=== PATIENT | male | born 1975 | race African-American/Black ===

== ENCOUNTER 2018-10-12 04:59 | Emergency (ER) | payer SELFPAY | END 2018-10-12 06:25 | disposition home or self-care (01) | LOC: ERS 04:59 | DX: B02.9 Zoster without complications (principal); I10 Essential (primary) hypertension; Z79.899 Other long term (current) drug therapy | CPT/HCPCS: 99282 ==

== ENCOUNTER 2019-04-15 19:59 | Observation (INO) | payer SELFPAY ==
[~2019-04-15 19:59] MED LIST: Iopamidol-370 76% 500 ML 1 ML ONE
[2019-04-15 20:23] LABS: #Lymphocytes 2.2 thou/uL (1.20-3.40); #Monocytes 0.8 thou/uL (0.11-0.59); #Neutrophils 13.3 thou/uL (1.40-6.50); %Basophils 0.2 % (0.0-1.0); %Eosinophils 0.1 % (0.0-10.0); %Lymphocytes 13.6 % (21.0-51.0); %Monocytes 5.1 % (0.0-10.0); %Neutrophils 81.1 % (42.0-75.0); Hemoglobin 15.5 g/dL (14.0-18.0); Mean Corpuscular HGB CONC 36.2 g/dL (32.0-36.0); Mean Corpuscular Volume 85.7 fL (78.0-98.0); Mean Platelet Volume 9.5 fL (7.4-10.4); Platelet Count 157 thou/uL (130-400); RBC Distribution Width 13.8 % (11.5-14.5); Red Blood Cell (RBC) Count 5.01 mill/uL (4.70-6.10); White Blood Cell (WBC) Count 16.4 thou/uL (4.8-10.8)
[2019-04-15 20:44] LABS: ALT (SGPT) 24 U/L (8-55); AST (SGOT) 20 U/L (5-34); Albumin 4.6 g/dL (3.5-5.0); Alkaline Phosphatase 59 U/L (40-110); Anion Gap 13 mmol/L (10-20); BUN (Urea Nitrogen) 16 mg/dL (8.9-20.6); Bilirubin, Total 1.4 mg/dL (0.2-1.2); Calc. Creatinine Clearance 0 mL/min (70-130); Carbon Dioxide 28 mmol/L (22-29); Chloride 101 mmol/L (98-107); Estimated GFR-MDRD 71; Globulin 3.5 g/dL (2.4-3.5); Glucose 91 mg/dL (70-105); Lipase 20 U/L (8-78); Potassium 3.8 mmol/L (3.5-5.1); Protein, Total 8.1 g/dL (6.0-8.3); Sodium 138 mmol/L (136-145)
--- NOTE | 2019-04-15 20:52 | RAD ---
PORTABLE CHEST: 04/15/19 HISTORY: Chest pain. Heart size appears slightly enlarged. Mediastinal structures appear unremarkable. The lungs are clear of infiltrates. There is no signs of failure. IMPRESSION: Some mild cardiomegaly. POS: [facility]
[2019-04-15 21:06] LABS: CKMB 2.1 ng/mL (0-6.6)
[2019-04-15] MEDS ORDERED: Aspirin Chewable 81 MG TAB ONE (21:18)
[2019-04-15] MEDS ORDERED: Acetaminophen 500 MG TAB ONE (21:18)
[2019-04-15] MEDS ORDERED: cefTRIAXone\\ROCEPHIN 1 GM VIAL ONE (22:18)
[2019-04-15] MEDS ORDERED: Nitroglycerin 2% Ointment 1 INCH/1 GM Packet ONE (22:18)
--- NOTE | 2019-04-15 22:39 | CT ---
CT Chest W Con HISTORY: Chest pain. COMPARISON: Chest x-ray done earlier today. FINDINGS: The lungs are clear of any infiltrative process. There is no significant mediastinal or hilar adenopathy. There is some residual thymic tissue present . The thoracic aorta is normal in caliber. There are fatty changes of the liver. Gallstones are noted. Suggestion of some possible esophageal wa ll thickening distally, this raises the possibility of reflux. IMPRESSION: 1. Mild fatty change of liver and gallstones. 2. Questionable slight wall thickening to the distal esophagus raising the possibility of reflux.
[2019-04-16] MEDS ORDERED: Ondansetron ODT 4 MG TAB SL PRN (00:31)
[2019-04-16] MEDS ORDERED: Ondansetron PF 4 MG/2 ML Vial IVP PRN (00:31)
[2019-04-16] MEDS ORDERED: Acetaminophen 325 MG TAB PO PRN (00:31)
[2019-04-16 00:47] VITALS: TEMP 98.4; BMI 36.3
[2019-04-16 00:54] LABS: Bacteria/HPF None Seen HPF (None Seen); Bilirubin Negative (Negative); Blood, Urine Negative (Negative); Clarity Clear (Clear); Glucose, Urine (Dipstick) Normal (Negative); Leukocyte Negative Leu/uL (Negative); Nitrite Negative (Negative); Protein, Urine (Dipstick) 10 mg/dL (Neg-Trace); RBC/HPF 0-3 HPF (0-3); Squamous Epithelial 0-3 HPF (0-3); Urobilinogen Normal mg/dL (Less than 2); WBC/HPF 0-3 HPF (0-3)
[2019-04-16 00:59] LABS: Urine Culture Reflex No No
[2019-04-16] MEDS ORDERED: HYDROcodone/Acetaminophen 5/325 mg Tablet PO PRN (01:16)
[2019-04-16] MEDS ORDERED: Bisacodyl 5 MG TAB PO PRN (01:16)
[2019-04-16] MEDS ORDERED: Nitroglycerin 0.4 MG TAB (25 Tab Bottle) PO PRN (01:16)
[2019-04-16] MEDS ORDERED: Morphine 2 MG/ML SYRINGE SLOW IVP PRN (01:29)
[2019-04-16] MEDS ORDERED: Lisinopril 20 MG TAB PO SCH ×2 (01:45→09:00)
[2019-04-16] MEDS ORDERED: Metoprolol Tartrate 25 MG TAB PO SCH ×2 (01:45→09:00)
[2019-04-16] MEDS ORDERED: Pantoprazole 40 MG VIAL IVP SCH ×2 (01:45→09:00)
[2019-04-16] MEDS: Sodium Chloride 0.9% 1,000 ML IV SCH ×2 (02:26→13:44)
[2019-04-16 02:45] LABS: Troponin I Less than 0.010 ng/mL (< 0.028)
--- NOTE | 2019-04-16 02:48 | HP ---
PRESENTING COMPLAINT: Chest pain. HISTORY OF PRESENT ILLNESS: Mr. Charan Maynard is a 43-year-old male with history of hypertension since the last three years, on lisinopril, but ran out of medications for the last 2 weeks, presented to the ED today because of 2-day history of substernal chest pain. Pain is more in the lower substernal area, no radiating, associated with more of a pressure-like. Patient denies any associated shortness of breath. He denies any headache or dizziness. He admits to nausea but no vomiting. He also admits to fever but no chills. On arrival in the ED, he was noted with a temperature of 101.9. Patient denies any sick contacts. He is accompanied by the mother history. There is no family history of coronary artery disease. Patient denies any regular tobacco use. He has not had his lipid panel checked in a while. He describes pain now still at 5/10. PAST MEDICAL HISTORY: Hypertension. HOME MEDICATION: Lisinopril, but currently out. SOCIAL HISTORY: Patient resides in the community with mom. No history of tobacco, alcohol, or illicit drug use. ALLERGIES: NO KNOWN DRUG ALLERGIES. FAMILY HISTORY: Significant for father with diabetes. Mom is young and healthy. REVIEW OF SYSTEMS: All systems reviewed times 10, negative, except as mentioned above. PHYSICAL EXAMINATION: VITAL SIGNS: Current vitals; blood pressure of 117/74, pulse of 80, respiratory rate of 18, temp 98.4, and O2 saturation 95% on room air. GENERAL: Overweight and well-built male, not in any distress. HEENT: Head is atraumatic, normocephalic. Pupils equal and reactive to light. NECK: No JVD. No carotid bruit. RESPIRATORY: Good air entry bilaterally. No crepitation. CARDIOVASCULAR: S1, S2. Rate and rhythm regular. GI: Tenderness over the epigastric region. Bowel sounds positive. No suprapubic fullness. No hepatosplenomegaly. RECTAL: Deferred. EXTREMITIES: No pedal edema. No calf tenderness. NEUROLOGIC: Patient is alert, oriented. Cranial nerves 2 through 12 grossly intact. LABORATORY DATA: Influenza A and B negative. EKG shows normal sinus rhythm, otherwise unremarkable. WBC of 16,000, platelets of 157, and hemoglobin of 15. Sodium 138, potassium 3.8, creatinine 1.3, total bilirubin of 1.4. AST and alkaline phosphatase normal. Troponin I 0.043 and repeat of 0.03. 2.1. Lipase 22. Urinalysis was unremarkable. Chest x-ray was normal. CT of the chest shows evidence of thickening of the distal esophagus, reason, the possibility of reflux. Mild fatty change of liver and gallstones. IMPRESSION: 1. Fever of unknown etiology, possibly due to acute cholecystitis. 2. Atypical chest pain, likely due to gastroesophageal reflux disease-induced chest pain. 3. Hypertension. PLAN: We will admit patient to inpatient status. We will manage the patient for the followin. Fever of unknown etiology, but given mild T bili elevation, high suspicion for cholecystitis. There is presence of gallstones on CT of the chest noted. We will obtain blood culture x2. We will do Tylenol p.r.n. for fever. We will do p.r.n. pain medication. We will start the patient on empiric antibiotics with Rocephin and Levaquin for now. We will consult GI. We will obtain HIDA scan of the gallbladder in the a.m. 2. Hypertension. Initially uncontrolled, but improved now. We restart the patient on lisinopril. Start low-dose metoprolol. 3. Chest pain, likely due to GERD-induced given present findings of CT scan of the chest. We will consult GI for possibility of EGD. We will start the patient on IV Protonix 40 mg q.12 for now. 4. DVT prophylaxis, subcutaneous heparin. 5. Advance directive. Patient is full code. Total time spent in review of record, discussion with patient, and evaluation greater than 60 minutes. Job ID: [id number]
[2019-04-16 05:39] LABS: #Eosinphils 0.1 thou/uL (0.0-0.7); #Lymphocytes 2.6 thou/uL (1.20-3.40); #Monocytes 1.1 thou/uL (0.11-0.59); #Neutrophils 8.4 thou/uL (1.40-6.50); %Basophils 0.3 % (0.0-1.0); %Eosinophils 0.4 % (0.0-10.0); %Lymphocytes 21.5 % (21.0-51.0); %Monocytes 8.7 % (0.0-10.0); %Neutrophils 69.1 % (42.0-75.0); Mean Corpuscular HGB CONC 35.9 g/dL (32.0-36.0); Mean Corpuscular Hemoglobin 30.9 pg (27.0-31.0); Mean Corpuscular Volume 86.1 fL (78.0-98.0); Mean Platelet Volume 9.7 fL (7.4-10.4); Platelet Count 142 thou/uL (130-400); RBC Distribution Width 13.7 % (11.5-14.5); Red Blood Cell (RBC) Count 4.53 mill/uL (4.70-6.10); White Blood Cell (WBC) Count 12.2 thou/uL (4.8-10.8)
[2019-04-16 05:59] LABS: ALT (SGPT) 19 U/L (8-55); AST (SGOT) 15 U/L (5-34); Alkaline Phosphatase 50 U/L (40-110); Anion Gap 11 mmol/L (10-20); BUN (Urea Nitrogen) 16 mg/dL (8.9-20.6); Bilirubin, Total 1.1 mg/dL (0.2-1.2); Calc. Creatinine Clearance 138 mL/min (70-130); Calcium 9.3 mg/dL (7.8-10.44); Carbon Dioxide 30 mmol/L (22-29); Cardiac Risk 3.1 (Less than 4.5); Chloride 102 mmol/L (98-107); Cholesterol 157 mg/dl (< 200 Desired); Estimated GFR-MDRD 79; Globulin 3.1 g/dL (2.4-3.5); Glucose 97 mg/dL (70-105); HDL Cholesterol 50 mg/dL (>60 Neg Risk); LDL Cholesterol, Calculated 92 mg/dL; Potassium 3.8 mmol/L (3.5-5.1); Protein, Total 7.1 g/dL (6.0-8.3); Sodium 139 mmol/L (136-145); Triglycerides 74 mg/dL (Less than 150)
[2019-04-16] MEDS: Nitroglycerin 2% Ointment 1 INCH/1 GM Packet TOP SCH ×2 (06:00→13:44)
[2019-04-16 08:11] VITALS: BP 148/95
[2019-04-16] MEDS ORDERED: Enoxaparin Sodium 40 MG/0.4 ML SYRINGE SC SCH (09:00)
--- NOTE | 2019-04-16 13:03 | NM ---
EXAM: NM Hida Scan W Drug PROVIDED CLINICAL HISTORY: No evidence for cholecystitis COMPARISON: None FINDINGS: 5 mCi technetium 99m labeled mebrofenin was given IV. The patient was pretreated with 2 mcg of CCK an alog prior to mebrofenin administration. 2 mcg of CCK analog were administered one hour post injection of radiopharmaceutical. Anterior planar imaging was performed over the abdomen, demonstrating appropriate radiotracer uptake by the liver with excretion into the gallbladder and a normal amount of time. Subsequent to the administration of the second dose of CCK analog, there is qualitatively normal excretion of radiotrac er from the gallbladder into bowel, with calculated gallbladder ejection fraction of 73%. IMPRESSION: 1. No evidence for cystic or high-grade common duct obstruction. 2. Normal gallbladder ejection fraction. 3. Nonspecific delayed biliary to bowel transit.
--- NOTE | 2019-04-16 21:00 | DIS ---
DATE OF ADMISSION: 04/15/2019 DATE OF DISCHARGE: 04/16/2019 DISCHARGE DIAGNOSES: 1. Gastroesophageal reflux. 2. Chest pain secondary to gastroesophageal reflux. 3. Hypertension. 4. Febrile episode. CONSULTATIONS: None. PERTINENT LABORATORY AND X-RAY FINDINGS: Creatinine ranged between 1.21 to 1.32. Lactic acid level 0.8. Total bilirubin ranged between 1.1 to 1.4. LFTs within normal limits. Troponin I ranged between 0.010 to 0.043. Lipase 20. Total cholesterol 157, triglyceride 74, HDL 50, LDL 92. CBC showed a white blood cell count ranged between 12.2 to 16.4. Blood cultures x2 dated 04/15/2019, showed no growth to date. Influenza A and B antigen dated 04/15/2019, negative. CT of the chest dated 04/15/2019, showed mild fatty changes of the liver with gallstones, slight wall thickening of the distal esophagus. Portable chest x-ray dated 04/15/2019, showed no acute cardiopulmonary process. Hepatobiliary scan dated 04/16/2019, showed no evidence for common bile duct obstruction. Gallbladder ejection fraction 73%. HOSPITAL COURSE: The patient was observed on the telemetry unit after initially presenting with chest pain. The patient underwent evaluation including CT imaging of the chest showing evidence of distal esophageal wall thickening. Metabolic screening was essentially unremarkable and the patient underwent a HIDA scan showing normal gallbladder function with the calculated gallbladder ejection fraction of 73%. The patient was also noted with low-grade fever at the time of admission with essentially negative workup for focal infectious process. The patient clinically stabilized with general supportive management and the remainder of the workup was unremarkable. Current recommendations are to initiate Protonix 40 mg daily for reflux and to continue outpatient management for hypertension. I have examined the patient at the time of discharge and discussed followup instructions. The patient verbalized understanding and in agreement, ready for discharge on 04/16/2019. DISCHARGE MEDICATIONS: 1. Lisinopril 20 mg p.o. daily. 2. Protonix 40 mg p.o. daily. FOLLOWUP: The patient to establish with a local primary care provider and a list was provided at the time of discharge. CONDITION ON DISCHARGE: Stable. ACTIVITY: Ad-aurelia. DIET: Heart healthy. CODE STATUS: Full. DISPOSITION: Home on 04/16/2019. Job ID: [id number]
[2019-04-16] MEDS ORDERED: cefTRIAXone\\ROCEPHIN 2 GM in Sodium Chloride 0.9% 100 ML IVPB SCH (22:00)
--- NOTE | 2019-04-18 14:35 | EKG ---
Test Reason : Blood Pressure : / mmHG Vent. Rate : 093 BPM Atrial Rate : 093 BPM P-R Int : 164 ms QRS Dur : 088 ms QT Int : 342 ms P-R-T Axes : 032 019 014 degrees QTc Int : 425 ms Poor data quality, interpretation may be adversely affected Normal sinus rhythm Nonspecific T wave change Abnormal ECG Confirmed by ALOK DAMIAN DO ([id number]), telegraph editor JULIAN ROBLES ([id number]) on 04/18/2019 2:35:20 PM Referred By: Confirmed By:ALOK DAMIAN DO
== END 2019-04-16 14:35 | disposition home or self-care (01) ==
LOC: ERS 19:59 → 2SW 23:21
PROVIDERS: ADMIT Internal Medicine; ATTEND Internal Medicine
DX: K21.9 Gastro-esophageal reflux disease without esophagitis (principal); I10 Essential (primary) hypertension; Z79.899 Other long term (current) drug therapy
CPT/HCPCS: 36415; 71045; 71260; 78227; 80053; 80061; 81001; 82553; 83605; 83690; 84484; 85025; 87040; 87804; 93005; 94760; 96361; 96365; 96372; 96375; 96376; A9537; C9113; G0378; J0696; J1650; Q9967

== ENCOUNTER 2021-11-20 12:09 | Emergency (ER) | payer SELFPAY | END 2021-11-20 12:24 | disposition home or self-care (01) | LOC: ERS 12:09 | DX: I10 Essential (primary) hypertension (principal); Z79.899 Other long term (current) drug therapy | CPT/HCPCS: 99283 ==

== ENCOUNTER 2022-08-28 06:40 | Emergency (ER) | payer BC ==
[2022-08-28 07:06] LABS: #Basophils 0.1 thou/uL (0.0-0.2); #Eosinphils 0.1 thou/uL (0.0-0.7); #Lymphocytes 2.1 thou/uL (1.20-3.40); #Monocytes 0.5 thou/uL (0.11-0.59); #Neutrophils 3.6 thou/uL (1.40-6.50); %Basophils 1.1 % (0.0-1.0); %Eosinophils 1.2 % (0.0-10.0); %Lymphocytes 33.4 % (21.0-51.0); %Monocytes 7.1 % (0.0-10.0); %Neutrophils 57.2 % (42.0-75.0); Hemoglobin 13.2 g/dL (14.0-18.0); Mean Corpuscular HGB CONC 33.5 g/dL (32.0-36.0); Mean Corpuscular Hemoglobin 29.5 pg (27.0-31.0); Mean Corpuscular Volume 88.1 fl (78.0-98.0); Mean Platelet Volume 10.1 fL (7.4-10.4); Platelet Count 131 10x3/uL (130-400); RBC Distribution Width 14.5 % (11.5-14.5); Red Blood Cell (RBC) Count 4.47 mill/uL (4.70-6.10); White Blood Cell (WBC) Count 6.3 10x3/uL (4.8-10.8)
[2022-08-28 07:26] LABS: ALT (SGPT) 24 U/L (8-55); AST (SGOT) 22 U/L (5-34); Albumin 3.6 g/dL (3.5-5.0); Alkaline Phosphatase 46 U/L (40-110); Anion Gap 12 mmol/L (10-20); BUN (Urea Nitrogen) 17 mg/dL (8.9-20.6); Bilirubin, Total 1.1 mg/dL (0.2-1.2); Calc. Creatinine Clearance 0 mL/min (70-130); Calcium 8.6 mg/dL (7.8-10.44); Carbon Dioxide 24 mmol/L (22-29); Chloride 110 mmol/L (98-107); Estimated GFR 73; Globulin 2.7 g/dL (2.4-3.5); Glucose 123 mg/dL (70-105); Potassium 3.8 mmol/L (3.5-5.1); Protein, Total 6.3 g/dL (6.0-8.3); Sodium 142 mmol/L (136-145)
== END 2022-08-28 08:40 | disposition home or self-care (01) ==
LOC: ERS 06:40
DX: R42 Dizziness and giddiness (principal); I10 Essential (primary) hypertension; Z79.899 Other long term (current) drug therapy
CPT/HCPCS: 36415; 80053; 84484; 85025; 93005

== ENCOUNTER 2022-09-01 07:27 | Inpatient (IN) | payer BC ==
[2022-09-01] MEDS ORDERED: Meclizine HCl 25 MG TAB ONE (07:44)
[2022-09-01] MEDS ORDERED: Acetaminophen 500 MG TAB ONE (07:44)
[2022-09-01 07:54] LABS: #Eosinphils 0.1 thou/uL (0.0-0.7); #Monocytes 0.7 thou/uL (0.11-0.59); #Neutrophils 4.9 thou/uL (1.40-6.50); %Basophils 0.3 % (0.0-1.0); %Eosinophils 0.8 % (0.0-10.0); %Monocytes 6.7 % (0.0-10.0); Mean Corpuscular HGB CONC 34.6 g/dL (32.0-36.0); Mean Corpuscular Hemoglobin 29.8 pg (27.0-31.0); Mean Corpuscular Volume 86.1 fl (78.0-98.0); Platelet Count 187 10x3/uL (130-400); RBC Distribution Width 15.2 % (11.5-14.5); Red Blood Cell (RBC) Count 5.04 mill/uL (4.70-6.10); White Blood Cell (WBC) Count 9.7 10x3/uL (4.8-10.8)
[2022-09-01 08:15] LABS: ALT (SGPT) 33 U/L (8-55); AST (SGOT) 26 U/L (5-34); Albumin 4.1 g/dL (3.5-5.0); Alkaline Phosphatase 52 U/L (40-110); Anion Gap 13 mmol/L (10-20); BUN (Urea Nitrogen) 20 mg/dL (8.9-20.6); Calc. Creatinine Clearance 0 mL/min (70-130); Calcium 9.3 mg/dL (7.8-10.44); Carbon Dioxide 26 mmol/L (22-29); Chloride 105 mmol/L (98-107); Estimated GFR 71; Globulin 3.3 g/dL (2.4-3.5); Glucose 153 mg/dL (70-105); Lipase 15 U/L (8-78); Potassium 4.4 mmol/L (3.5-5.1); Protein, Total 7.4 g/dL (6.0-8.3); Sodium 140 mmol/L (136-145)
[2022-09-01 08:38] LABS: CKMB 4.1 ng/mL (0-6.6)
[2022-09-01] MEDS ORDERED: Diazepam 10 MG/2 ML SYRINGE ONE (08:50)
[2022-09-01] MEDS ORDERED: Nitroglycerin 2% Ointment 1 INCH/1 GM Packet ONE (08:50)
[2022-09-01] MEDS ORDERED: Aspirin Chewable 81 MG TAB ONE (08:50)
[2022-09-01] MEDS ORDERED: Calcium Carbonate 500 MG ChewTAB PO PRN (08:57)
[2022-09-01] MEDS ORDERED: Ondansetron ODT 4 MG TAB PO PRN (08:57)
[2022-09-01] MEDS ORDERED: Senokot S 8.6-50 MG TAB PO PRN (08:57)
[2022-09-01] MEDS ORDERED: Ondansetron PF 4 MG/2 ML Vial IVP PRN (08:57)
[2022-09-01] MEDS ORDERED: Dextrose 5% in Water 1,000 ML IV PRN (08:59)
[2022-09-01] MEDS ORDERED: HumaLOG 300 UNITS/3 ML VIAL SC PRN (08:59)
[2022-09-01] MEDS ORDERED: Dextrose 50% Abboject 50 ML SYRINGE SLOW IVP PRN (08:59)
[2022-09-01] MEDS ORDERED: hydrALAZINE 20 MG/ML VIAL SLOW IVP PRN (09:02)
[2022-09-01 10:06] LABS: Acetaminophen Less than 10.0 mcg/mL (10.0-30.0); Alcohol Less than 10 mg/dL (Less than 10); Salicylate Less than 8.0 mg/dL (15.0-30.0)
[2022-09-01 10:27] VITALS: BMI 36.8
[2022-09-01] MEDS ORDERED: Diazepam 10 MG/2 ML SYRINGE IVP SCH (11:15)
[2022-09-01 12:39] LABS: Troponin I 0.016 ng/mL (< 0.028)
[2022-09-01] MEDS: Meclizine HCl 25 MG TAB PO SCH ×2 (12:56→21:00)
[2022-09-01 16:44] LABS: Troponin I 0.026 ng/mL (< 0.028)
[2022-09-01] MEDS: Atorvastatin Calcium 40 MG TAB PO SCH (20:50)
[2022-09-01] MEDS: Acetaminophen 325 MG TAB PO PRN (20:51)
[2022-09-02 05:15] LABS: #Eosinphils 0.1 thou/uL (0.0-0.7); #Monocytes 0.7 thou/uL (0.11-0.59); #Neutrophils 6.6 thou/uL (1.40-6.50); %Basophils 0.2 % (0.0-1.0); %Eosinophils 0.6 % (0.0-10.0); %Lymphocytes 29.5 % (21.0-51.0); %Monocytes 6.8 % (0.0-10.0); %Neutrophils 62.6 % (42.0-75.0); Hemoglobin 14.3 g/dL (14.0-18.0); Mean Corpuscular HGB CONC 33.1 g/dL (32.0-36.0); Mean Corpuscular Hemoglobin 28.6 pg (27.0-31.0); Mean Corpuscular Volume 86.4 fl (78.0-98.0); Mean Platelet Volume 11.6 fL (7.4-10.4); Platelet Count 165 10x3/uL (130-400); RBC Distribution Width 15.5 % (11.5-14.5); White Blood Cell (WBC) Count 10.5 10x3/uL (4.8-10.8)
[2022-09-02 05:25] LABS: Hemoglobin A1c 4.5 % (4.0-6.0)
[2022-09-02 05:38] LABS: ALT (SGPT) 29 U/L (8-55); AST (SGOT) 19 U/L (5-34); Albumin 3.8 g/dL (3.5-5.0); Alkaline Phosphatase 46 U/L (40-110); Anion Gap 12 mmol/L (10-20); BUN (Urea Nitrogen) 21 mg/dL (8.9-20.6); Bilirubin, Total 0.9 mg/dL (0.2-1.2); Calc. Creatinine Clearance 110 mL/min (70-130); Calcium 8.9 mg/dL (7.8-10.44); Carbon Dioxide 27 mmol/L (22-29); Cardiac Risk 3.6 (Less than 4.5); Chloride 102 mmol/L (98-107); Cholesterol 156 mg/dl (< 200 Desired); Estimated GFR 56; Globulin 2.8 g/dL (2.4-3.5); Glucose 124 mg/dL (70-105); HDL Cholesterol 43 mg/dL (>60 Neg Risk); LDL Cholesterol, Calculated 92 mg/dL; Potassium 3.7 mmol/L (3.5-5.1); Protein, Total 6.6 g/dL (6.0-8.3); Sodium 137 mmol/L (136-145); Triglycerides 103 mg/dL (Less than 150)
[2022-09-02] MEDS: Acetaminophen 325 MG TAB PO PRN ×3 (05:41→22:08)
[2022-09-02] MEDS: Meclizine HCl 25 MG TAB PO SCH ×3 (05:41→20:48)
[2022-09-02] MEDS: Aspirin 81 mg Enteric Coated Tablet PO SCH (08:36)
[2022-09-02] MEDS ORDERED: hydrALAZINE 20 MG/ML VIAL SLOW IVP PRN (09:19)
[2022-09-02] MEDS ORDERED: Amlodipine 5 MG TAB PO SCH ×2 (09:30→12:15)
[2022-09-02] MEDS ORDERED: Lisinopril 20 MG TAB PO SCH (09:30)
[2022-09-02] MEDS ORDERED: hydrALAZINE 20 MG/ML VIAL SLOW IVP SCH ×2 (12:15→15:45)
[2022-09-02] MEDS ORDERED: Labetalol HCl 100 MG/20 ML VIAL SLOW IVP SCH (16:30)
[2022-09-02] MEDS: hydrALAZINE 25 MG TAB PO SCH (20:46)
[2022-09-02] MEDS: Atorvastatin Calcium 40 MG TAB PO SCH (20:48)
[2022-09-03 05:17] LABS: Anion Gap 12 mmol/L (10-20); BUN (Urea Nitrogen) 19 mg/dL (8.9-20.6); Calc. Creatinine Clearance 117 mL/min (70-130); Carbon Dioxide 27 mmol/L (22-29); Chloride 106 mmol/L (98-107); Estimated GFR 61; Glucose 93 mg/dL (70-105); Sodium 141 mmol/L (136-145)
[2022-09-03] MEDS: Meclizine HCl 25 MG TAB PO SCH ×3 (06:50→21:54)
[2022-09-03] MEDS ORDERED: Amlodipine 10 MG TAB PO SCH (09:00)
[2022-09-03] MEDS ORDERED: Lisinopril 20 MG TAB PO SCH (09:00)
[2022-09-03] MEDS: NIFEdipine XL 60 MG TAB PO SCH (09:51)
[2022-09-03] MEDS: hydrALAZINE 25 MG TAB PO SCH ×3 (09:54→21:54)
[2022-09-03] MEDS: Aspirin 81 mg Enteric Coated Tablet PO SCH (09:56)
[2022-09-03] MEDS: Acetaminophen 325 MG TAB PO PRN ×2 (10:09→21:53)
[2022-09-03] MEDS ORDERED: hydrALAZINE 25 MG TAB PO SCH ×2 (11:00→15:00)
[2022-09-03] MEDS ORDERED: Labetalol HCl 100 MG/20 ML VIAL SLOW IVP PRN (12:00)
[2022-09-03] MEDS ORDERED: Lorazepam 1 MG TAB PO PRN (13:00)
[2022-09-03] MEDS: Atorvastatin Calcium 40 MG TAB PO SCH (21:54)
[2022-09-04 05:12] LABS: Anion Gap 11 mmol/L (10-20); BUN (Urea Nitrogen) 20 mg/dL (8.9-20.6); Calc. Creatinine Clearance 135 mL/min (70-130); Calcium 9.2 mg/dL (7.8-10.44); Carbon Dioxide 25 mmol/L (22-29); Chloride 106 mmol/L (98-107); Estimated GFR 72; Glucose 92 mg/dL (70-105); Magnesium 2.1 mg/dL (1.6-2.6); Potassium 3.8 mmol/L (3.5-5.1); Sodium 138 mmol/L (136-145)
[2022-09-04] MEDS: Meclizine HCl 25 MG TAB PO SCH ×3 (06:06→21:07)
[2022-09-04] MEDS: Acetaminophen 325 MG TAB PO PRN (06:06)
[2022-09-04] MEDS: Aspirin 81 mg Enteric Coated Tablet PO SCH (11:11)
[2022-09-04] MEDS: hydrALAZINE 25 MG TAB PO SCH ×4 (11:11→18:43)
[2022-09-04] MEDS: NIFEdipine XL 60 MG TAB PO SCH (11:12)
[2022-09-04] MEDS: Lisinopril 20 MG TAB PO SCH (11:14)
[2022-09-04] MEDS ORDERED: NIFEdipine XL 60 MG TAB PO SCH (11:45)
[2022-09-04] MEDS: Atorvastatin Calcium 40 MG TAB PO SCH (21:07)
[2022-09-05] MEDS: Meclizine HCl 25 MG TAB PO SCH ×2 (06:39→16:18)
[2022-09-05] MEDS ORDERED: NIFEdipine XL 60 MG TAB PO SCH (09:00)
[2022-09-05] MEDS: hydrALAZINE 25 MG TAB PO SCH ×2 (10:26→16:18)
[2022-09-05] MEDS: Lisinopril 20 MG TAB PO SCH (10:27)
[2022-09-05] MEDS: Aspirin 81 mg Enteric Coated Tablet PO SCH (10:28)
[2022-09-05 11:48] VITALS: BP 144/78; TEMP 98.2
[2022-09-05] MEDS ORDERED: Lisinopril 20 MG TAB PO SCH (21:00)
== END 2022-09-05 17:10 | disposition home or self-care (01) | DRG 305 ==
LOC: ERS 07:27 → SUATTDRO 07:27 → NEURO 10:15 → OBSVTOIN 09-02 16:00
PROVIDERS: ADMIT Internal Medicine; ATTEND Internal Medicine
DX: I16.1 Hypertensive emergency (principal); G45.9 Transient cerebral ischemic attack, unspecified; N17.9 Acute kidney failure, unspecified; I24.8 Other forms of acute ischemic heart disease; I10 Essential (primary) hypertension; E66.9 Obesity, unspecified; Z91.148 Patient's other noncompliance with medication regimen for other reason; Z68.36 Body mass index [BMI] 36.0-36.9, adult; Z79.899 Other long term (current) drug therapy
CPT/HCPCS: 36415; 36416; 70450; 70551; 71045; 80048; 80053; 80061; 80307; 82553; 83036; 83690; 83735; 84443; 84484; 85025; 93005; 93306; 93880; 94760; 96372; 96374; 96375; 96376; G0378; J0360; J1650; J2405; J3360; Q0162

== ENCOUNTER 2023-10-10 14:41 | Emergency (ER) | payer BC, SELFPAY ==
[2023-10-10] MEDS ORDERED: Aspirin Chewable 81 MG TAB ONE (15:55)
[2023-10-10 16:08] LABS: #Basophils Less than 0.03 10x3/uL (0.0-0.2); %Basophils 0.2 % (0.0-1.0); %Eosinophils 0.7 % (0.0-10.0); %Lymphocytes 27.2 % (21.0-51.0); %Neutrophils 64.7 % (42.0-75.0); Hematocrit 41.1 % (42.0-52.0); Mean Corpuscular HGB CONC 36.5 g/dL (32.0-36.0); Mean Corpuscular Hemoglobin 31.2 pg (27.0-31.0); Mean Corpuscular Volume 85.4 fL (78.0-98.0); Mean Platelet Volume 11.1 fL (7.4-10.4); Platelet Count 177 10x3/uL (130-400); RBC Distribution Width 14.2 % (11.5-14.5); Red Blood Cell (RBC) Count 4.81 mill/uL (4.70-6.10)
[2023-10-10 16:33] LABS: Troponin I Less than 0.010 ng/mL (< 0.028)
[2023-10-10 17:01] LABS: ALT (SGPT) 25 U/L (8-55); AST (SGOT) 21 U/L (5-34); Albumin 4.1 g/dL (3.5-5.0); Alkaline Phosphatase 67 U/L (40-110); Anion Gap 19 mmol/L (10-20); BUN (Urea Nitrogen) 22 mg/dL (8.9-20.6); Bilirubin, Total 0.8 mg/dL (0.2-1.2); Calc. Creatinine Clearance 0 mL/min (70-130); Calcium 9.4 mg/dL (7.8-10.44); Carbon Dioxide 21 mmol/L (22-29); Chloride 109 mmol/L (98-107); Estimated GFR 65; Globulin 3.7 g/dL (2.4-3.5); Glucose 105 mg/dL (70-105); Potassium 4.2 mmol/L (3.5-5.1); Protein, Total 7.8 g/dL (6.0-8.3); Sodium 145 mmol/L (136-145)
== END 2023-10-10 17:45 | disposition home or self-care (01) ==
LOC: ERS 14:41
DX: R07.9 Chest pain, unspecified (principal); R42 Dizziness and giddiness; I10 Essential (primary) hypertension
CPT/HCPCS: 71045; 80053; 84484; 85025; 93005

== ENCOUNTER 2024-03-12 18:09 | Emergency (ER) | payer BC | END 2024-03-12 18:30 | disposition home or self-care (01) | LOC: ERS 18:09 | DX: Z76.0 Encounter for issue of repeat prescription (principal); I10 Essential (primary) hypertension | CPT/HCPCS: 99281 ==

== ENCOUNTER 2024-06-06 17:22 | Emergency (ER) | payer BC | END 2024-06-06 18:04 | disposition home or self-care (01) | LOC: ERS 17:22 | DX: Z76.0 Encounter for issue of repeat prescription (principal); I10 Essential (primary) hypertension; Z79.899 Other long term (current) drug therapy ==

== ENCOUNTER 2025-02-26 18:08 | Emergency (ER) | payer BC | END 2025-02-26 18:46 | disposition home or self-care (01) | LOC: ERS 18:08 | DX: H66.92 Otitis media, unspecified, left ear (principal); I10 Essential (primary) hypertension | CPT/HCPCS: 99282 ==

== ENCOUNTER 2025-04-16 13:34 | Emergency (ER) | payer BC ==
[2025-04-16 15:57] LABS: #Basophils Less than 0.03 10x3/uL (0.0-0.2); #Eosinophils 0.04 10x3/uL (0.0-0.7); #Monocytes 0.64 10x3/uL (0.11-0.59); #Neutrophils 5.63 10x3/uL (1.40-6.50); %Basophils 0.2 % (0.0-1.0); %Eosinophils 0.4 % (0.0-10.0); %Lymphocytes 30.8 % (21.0-51.0); %Monocytes 7.0 % (0.0-10.0); %Neutrophils 61.4 % (42.0-75.0); Hematocrit 44.9 % (42.0-52.0); Hemoglobin 15.3 g/dL (14.0-18.0); Mean Corpuscular Hemoglobin 29.3 pg (27.0-31.0); Mean Corpuscular Volume 86.0 fL (78.0-98.0); Platelet Count 182 10x3/uL (130-400); Red Blood Cell (RBC) Count 5.22 mill/uL (4.70-6.10); White Blood Cell (WBC) Count 9.17 10x3/uL (4.8-10.8)
[2025-04-16 16:09] LABS: ALT (SGPT) 28 U/L (Less than 45); AST (SGOT) 23 U/L (11-34); Albumin 4.0 g/dL (3.1-4.5); Alkaline Phosphatase 56 U/L (40-110); Anion Gap 11 mmol/L (10-20); BUN (Urea Nitrogen) 12 mg/dL (8.9-20.6); Bilirubin, Total 0.6 mg/dL (0.3-1.2); Calc. Creatinine Clearance 0 mL/min (70-130); Calcium 9.1 mg/dL (7.8-10.44); Carbon Dioxide 23 mmol/L (22-29); Chloride 111 mmol/L (98-107); Globulin 2.8 g/dL (2.4-3.5); Glucose 87 mg/dL (70-105); Potassium 4.0 mmol/L (3.5-5.1); Sodium 141 mmol/L (136-145)
== END 2025-04-16 17:17 | disposition home or self-care (01) ==
LOC: ERS 13:34
DX: R42 Dizziness and giddiness (principal); R07.89 Other chest pain; R29.700 NIHSS score 0; I10 Essential (primary) hypertension
CPT/HCPCS: 71045; 80053; 84484; 85025; 93005